=== PATIENT | male | born 1945 | race Caucasian/White ===

== ENCOUNTER 2022-11-02 16:15 | Emergency (ER) | payer MEDICARE, OTHER ==
[2022-11-02 16:41] VITALS: BP 135/71
[2022-11-02] MEDS ORDERED: MOLNUPIRAVIR PREPACK PO STA (17:15)
--- NOTE | 2022-11-02 17:19 | ED Physician Documentation ---
History of Present Illness - Stated complaint Stated Complaint: C+,FEVER,HEADACHE - Chief complaint Chief Complaint: Fever - History obtained from History obtained from: Patient, Family - History of Present Illness Timing: Today Pain level max: 0 Pain level now: 0 - Additonal information Additional information: 76-year-old male with a fever that started today. Took a home COVID test that was positive. Has a mild, dry cough. He is fully vaccinated and boosted. Does not have any significant lung issues. History of hyperlipidemia. He is interested in antiviral therapy. No hypoxia or difficulty breathing. He recently returned home from a trip to [place]. Review of Systems Constitutional: reports: Fever Nose: reports: Rhinorrhea / runny nose Cardiac: denies: Chest pain / pressure Respiratory: reports: Cough. denies: Dyspnea, Wheezing GI: denies: Abdominal Pain, Nausea, Vomiting PD PAST MEDICAL HISTORY - Past Medical History Past Medical History: Yes Cardiovascular: High cholesterol Respiratory: Pneumonia - Past Surgical History Past Surgical History: No - Present Medications Home Medications: Ambulatory Orders Medication Instructions Recorded Confirmed Rosuvastatin Calcium [Crestor] 40 mg PO DAILY 11/02/22 11/02/22 Sildenafil Citrate [Viagra] 25 mg PO PRN PRN 11/02/22 11/02/22 minoxidiL [Minoxidil] 2.5 mg PO DAILY 11/02/22 11/02/22 - Allergies Allergies/Adverse Reactions: Allergies Allergy/AdvReac Type Severity Reaction Status Date / Time No Known Drug Allergies Allergy Verified 11/02/22 16:36 - Social History Does the pt smoke?: No Smoking Status: Never smoker Does the pt drink ETOH?: Yes ETOH Use: Wine Does the pt have substance abuse?: No PD ED PE NORMAL - Vitals Vital signs reviewed: Yes - General General: Alert and oriented X 3, No acute distress - HEENT HEENT: Moist mucous membranes - Neck Neck: Supple, no meningeal sign - Cardiac Cardiac: RRR, Strong equal pulses - Respiratory Respiratory: No respiratory distress, Clear bilaterally - Abdomen Abdomen: Soft, Non tender, Non distended - Derm Derm: Warm and dry - Neuro Neuro: Alert and oriented X 3 - Psych Psych: Normal mood, Normal affect Results - Vitals Vitals: Vital Signs - 24 hr 11/02/22 16:32 Temperature 38.1 C H Heart Rate 96 Respiratory 20 Rate Blood Pressure 135/71 H O2 Saturation 94 Oxygen O2 Source Room air PD Medical Decision Making - ED course Complexity details: considered differential, d/w patient ED course: 76-year-old male tested positive for COVID at home. No hypoxia or respiratory distress. Very well-appearing, nontoxic. Lungs clear to auscultation bilaterally. He is interested in antiviral therapy, Paxlovid would not interact with his statin, therefore we will place him on molnupiravir. Patient counseled regarding signs and symptoms for which I believe and urgent re- evaluation would be necessary. Patient with good understanding of and agreement to plan and is comfortable going home at this time This document was made in part using voice recognition software. While efforts are made to proofread this document, sound alike and grammatical errors may occur. Departure - Departure Disposition: 01 Home, Self Care Clinical Impression: COVID-19 Condition: Good Instructions: ED URI Viral Follow-Up: your,doctor as needed [Other] Comments: Please follow-up with your doctor as needed for further care. You were prescribed molnupiravir today. Take this as prescribed. Please return if you worsen. Forms: PCP List Discharge Date/Time: 11/02/22 17:31
== END 2022-11-02 17:31 | disposition home or self-care (01) ==
LOC: ED 16:15
DX: U07.1 COVID-19 (principal); E78.00 Pure hypercholesterolemia, unspecified
CPT/HCPCS: 99282; 99283; J3490